=== PATIENT | female | born 2000 | race Hispanic/Latino ===

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

== ENCOUNTER 2022-10-18 10:46 | Emergency (ER) | payer MEDICAID, OTHER, SELFPAY ==
[2022-10-18 11:39] LABS: Bilirubin Neg (Negative); Blood, Urine 250 (Negative); Clarity Clear (Clear); Glucose, Urine (Dipstick) Normal (Negative); Ketone, Urine Negative (Negative); Leukocyte 25 (Negative); Nitrite Negative (Negative); Protein, Urine (Dipstick) 15 mg/dl (Neg-Trace); Specific Gravity, Urine 1.015 (1.005-1.030); Urobilinogen Normal mg/dL (Less than 2)
[2022-10-18 12:18] LABS: Bacteria/HPF 1+ HPF (None Seen); Mucous/LPF 1+ LPF (<2+); RBC/HPF 0-3 HPF (0-3); WBC/HPF 0-3 HPF (0-3)
== END 2022-10-18 12:41 | disposition left against medical advice (07) ==
LOC: CSHERS 10:46
DX: Z53.21 Procedure and treatment not carried out due to patient leaving prior to being seen by health care provider (principal)
CPT/HCPCS: 81003; 81015

== ENCOUNTER 2025-05-26 22:56 | Day surgery (SDC) | payer OTHER ==
[2025-05-26 23:28] VITALS: BMI 24.6
[2025-05-27] MEDS: Ondansetron ORAL SOLN. 4 MG/5 ML UDCUP PO SCH (00:13)
[2025-05-27 01:06] LABS: INR-International Normal Ratio 0.9; PTT 26.2 sec (22.0-33.0); Prothrombin Time 10.3 sec (9.5-12.1)
== END 2025-05-27 03:30 | disposition home or self-care (01) ==
LOC: CSHLD/OP 22:56
PROVIDERS: ATTEND Obstetrics & Gynecology
DX: O47.03 False labor before 37 completed weeks of gestation, third trimester (principal); Z3A.29 29 weeks gestation of pregnancy; Z88.2 Allergy status to sulfonamides; W01.10XA Fall on same level from slipping, tripping and stumbling with subsequent striking against unspecified object, initial encounter
CPT/HCPCS: 36415; 76819; 85610; 85730; Q0162